=== PATIENT | male | born 1965 | race Caucasian/White ===

== ENCOUNTER 2022-03-06 00:02 | Emergency (ER) | payer BC ==
[2022-03-06] MEDS ORDERED: Dexamethasone 20 MG/5 ML VIAL ONE (00:39)
== END 2022-03-06 01:08 | disposition home or self-care (01) ==
LOC: NAV ERS 00:02
DX: J01.90 Acute sinusitis, unspecified (principal); I10 Essential (primary) hypertension; Z79.899 Other long term (current) drug therapy
CPT/HCPCS: 96372; 99283; J1100